=== PATIENT | male | born 1935 | race Caucasian/White ===

== ENCOUNTER 2018-08-19 19:52 | Inpatient (IN) | payer OTHER ==
[2018-08-19] MEDS ORDERED: ONDANSETRON 4 MG INJ IV (21:30)
[2018-08-19] MEDS ORDERED: ACETAMINOPHEN 325 MG TAB PO (21:30)
[2018-08-19] MEDS ORDERED: BISACODYL (EC) 5 MG TAB PO (21:30)
[2018-08-19] MEDS ORDERED: DOCUSATE SODIUM 100 MG CAP PO (21:30)
[2018-08-19] MEDS ORDERED: NACL 0.9% 3 ML SYG IV (21:30)
[2018-08-19 22:03] LABS: ADD MAN DIFF? NO
[2018-08-19 22:08] LABS: BASOPHILS % 0.5 % (0.0-2.0); EOSINOPHILS # 0.2 10^3/ul (0.0-0.5); HEMATOCRIT 33.5 % (42.0-52.0); HEMOGLOBIN 10.8 g/dl (14.0-18.0); LYMPHOCYTES # 1.1 10^3/ul (0.8-2.9); LYMPHOCYTES % 17.6 % (15.0-51.0); MEAN CORPUSCULAR HEMOGLOBIN 29.6 pg (29.0-33.0); MEAN CORPUSCULAR HGB CONC 32.2 g/dl (32.0-37.0); MEAN CORPUSCULAR VOLUME 91.8 fl (82.0-101.0); MEAN PLATELET VOLUME 9.9 fl (7.4-10.4); MONOCYTE # 0.6 10^3/ul (0.3-0.9); MONOCYTES % 10.6 % (0.0-11.0); NEUTROPHILS % 67.6 % (39.0-77.0); PLATELET COUNT 270 10^3/UL (140-415); RED BLOOD COUNT 3.65 10^6/ul (4.70-6.10); RED CELL DISTRIBUTION WIDTH 13.3 % (11.5-14.5)
[2018-08-19 22:28] LABS: INR 0.93; PROTIME 12.6 Sec (11.9-14.9)
[2018-08-19 22:29] LABS: PARTIAL THROMBOPLASTIN TIME 28.9 Sec (23.0-35.0)
[2018-08-19 22:29] LABS: LACTIC ACID 1.9 mmol/L (0.5-2.0)
[2018-08-19] MEDS: LISINOPRIL 5 MG TAB PO (22:30)
[2018-08-19] MEDS ORDERED: morphine 2 MG INJ IV (22:30)
[2018-08-19] MEDS ORDERED: HEPARIN 5,000 UNIT/0.5 ML VIAL (22:54)
[2018-08-19] MEDS: HEPARIN 5,000 UNIT/1 ML VIAL SC (23:03)
[2018-08-19] MEDS: HYDROCODONE/APAP (5/325) TAB PO (23:04)
[2018-08-19 23:12] LABS: ALANINE AMINOTRANSFERASE 8 IU/L (13-69); ALBUMIN 3.6 g/dl (3.3-4.9); ALBUMIN/GLOBULIN RATIO 1.12; ALKALINE PHOSPHATASE 58 IU/L (42-121); ANION GAP 10 (5-13); ASPARTATE AMINO TRANSFERASE 28 IU/L (15-46); BILIRUBIN,INDIRECT 0.4 mg/dl (0-1.1); BILIRUBIN,TOTAL 0.4 mg/dl (0.2-1.3); BLOOD UREA NITROGEN 25 mg/dl (7-20); CARBON DIOXIDE 25 mmol/L (21-31); CHLORIDE 98 mmol/L (97-110); GLUCOSE 94 mg/dl (70-220); MAGNESIUM 1.8 mg/dl (1.7-2.5); SODIUM 133 mmol/L (135-144); TOTAL PROTEIN 6.8 g/dl (6.1-8.1)
[2018-08-19] MEDS: MELATONIN 3 MG TABLET PO (23:30)
[2018-08-20] MEDS ORDERED: HEPARIN 5,000 UNIT/0.5 ML VIAL ×3 (05:52→20:44)
[2018-08-20] MEDS: HEPARIN 5,000 UNIT/1 ML VIAL SC ×3 (05:56→21:07)
[2018-08-20 06:08] LABS: ADD MAN DIFF? NO
[2018-08-20 06:13] LABS: BASOPHILS % 0.9 % (0.0-2.0); EOSINOPHILS # 0.3 10^3/ul (0.0-0.5); EOSINOPHILS % 5.4 % (0.0-7.0); HEMATOCRIT 30.3 % (42.0-52.0); LYMPHOCYTES % 21.8 % (15.0-51.0); MEAN CORPUSCULAR HEMOGLOBIN 29.9 pg (29.0-33.0); MEAN CORPUSCULAR VOLUME 90.7 fl (82.0-101.0); MEAN PLATELET VOLUME 9.5 fl (7.4-10.4); MONOCYTE # 0.7 10^3/ul (0.3-0.9); NEUTROPHIL # 2.7 10^3/ul (1.6-7.5); NEUTROPHILS % 57.5 % (39.0-77.0); PLATELET COUNT 280 10^3/UL (140-415); RED BLOOD COUNT 3.34 10^6/ul (4.70-6.10); RED CELL DISTRIBUTION WIDTH 13.2 % (11.5-14.5)
[2018-08-20 06:13] LABS: WHITE BLOOD COUNT 4.6 10^3/ul (4.8-10.8)
[2018-08-20 06:36] LABS: HEMOGLOBIN A1C 5.5 % (0-5.9)
[2018-08-20] MEDS ORDERED: VANCOMYCIN IV PER PHARMACY XX (07:00)
[2018-08-20 07:01] LABS: ADD UMIC NO; UR ASCORBIC ACID NEGATIVE (NEGATIVE); UR BILIRUBIN (Dip) NEGATIVE (NEGATIVE); UR BLOOD (Dip) NEGATIVE (NEGATIVE); UR CLARITY CLEAR (CLEAR); UR COLOR STRAW (YELLOW); UR GLUCOSE (Dip) NEGATIVE (NEGATIVE); UR KETONES (Dip) NEGATIVE (NEGATIVE); UR LEUKOCYTE ESTERASE (Dip) NEGATIVE Leu/ul (NEGATIVE); UR NITRITE (Dip) NEGATIVE (NEGATIVE); UR SPECIFIC GRAVITY (Dip) 1.008 (1.003-1.030); UR TOTAL PROTEIN (Dip) NEGATIVE (NEGATIVE); UR UROBILINOGEN (Dip) NEGATIVE (NEGATIVE)
[2018-08-20 07:07] LABS: ALANINE AMINOTRANSFERASE 9 IU/L (13-69); ALBUMIN 3.4 g/dl (3.3-4.9); ALBUMIN/GLOBULIN RATIO 1.03; ALKALINE PHOSPHATASE 68 IU/L (42-121); ANION GAP 9 (5-13); ASPARTATE AMINO TRANSFERASE 22 IU/L (15-46); BILIRUBIN,INDIRECT 0.4 mg/dl (0-1.1); BILIRUBIN,TOTAL 0.4 mg/dl (0.2-1.3); BLOOD UREA NITROGEN 20 mg/dl (7-20); CALCIUM 8.8 mg/dl (8.4-10.2); CARBON DIOXIDE 25 mmol/L (21-31); CHLORIDE 102 mmol/L (97-110); CHOL/HDL RATIO 2.9 RATIO; CHOLESTEROL 151 mg/dl (100-200); CREATININE 0.73 mg/dl (0.61-1.24); GLUCOSE 93 mg/dl (70-220); HDL CHOLESTEROL 52 mg/dl (31-75); LDL CHOLESTEROL,CALCULATED 86 mg/dl; MAGNESIUM 1.8 mg/dl (1.7-2.5); POTASSIUM 4.3 mmol/L (3.5-5.1); SODIUM 136 mmol/L (135-144); TOTAL PROTEIN 6.7 g/dl (6.1-8.1); TRIGLYCERIDES 63 mg/dl (0-149)
[2018-08-20] MEDS: LISINOPRIL 5 MG TAB PO (08:39)
[2018-08-20 09:53] LABS: LACTIC ACID 1.6 mmol/L (0.5-2.0)
[2018-08-20] MEDS: VANCOMYCIN 1 GM 250 ML IVPB (11:07)
[2018-08-20] MEDS: DOXYCYCLINE 100 MG TAB PO ×2 (13:19→21:07)
[2018-08-20] MEDS: HYDROCODONE/APAP (5/325) TAB PO (14:27)
[2018-08-21 07:12] LABS: ADD MAN DIFF? NO
[2018-08-21 07:17] LABS: BASOPHILS % 0.6 % (0.0-2.0); EOSINOPHILS # 0.2 10^3/ul (0.0-0.5); EOSINOPHILS % 3.6 % (0.0-7.0); HEMATOCRIT 31.6 % (42.0-52.0); HEMOGLOBIN 10.4 g/dl (14.0-18.0); LYMPHOCYTES # 1.1 10^3/ul (0.8-2.9); LYMPHOCYTES % 21.8 % (15.0-51.0); MEAN CORPUSCULAR HEMOGLOBIN 30.3 pg (29.0-33.0); MEAN CORPUSCULAR HGB CONC 32.9 g/dl (32.0-37.0); MEAN CORPUSCULAR VOLUME 92.1 fl (82.0-101.0); MEAN PLATELET VOLUME 9.6 fl (7.4-10.4); MONOCYTE # 0.6 10^3/ul (0.3-0.9); MONOCYTES % 11.6 % (0.0-11.0); NEUTROPHIL # 3.1 10^3/ul (1.6-7.5); NEUTROPHILS % 61.8 % (39.0-77.0); PLATELET COUNT 287 10^3/UL (140-415); RED BLOOD COUNT 3.43 10^6/ul (4.70-6.10); RED CELL DISTRIBUTION WIDTH 13.4 % (11.5-14.5)
[2018-08-21 07:49] LABS: ANION GAP 9 (5-13); BLOOD UREA NITROGEN 20 mg/dl (7-20); CALCIUM 8.7 mg/dl (8.4-10.2); CARBON DIOXIDE 26 mmol/L (21-31); CHLORIDE 100 mmol/L (97-110); CREATININE 0.86 mg/dl (0.61-1.24); GLUCOSE 122 mg/dl (70-220); POTASSIUM 4.5 mmol/L (3.5-5.1); SODIUM 135 mmol/L (135-144)
[2018-08-21 07:54] LABS: PHOSPHORUS 3.5 mg/dl (2.5-4.9)
[2018-08-21 07:54] LABS: MAGNESIUM 1.9 mg/dl (1.7-2.5)
[2018-08-21] MEDS: VANCOMYCIN 500MG/NS (PMX) 100 ML IVPB (08:00)
[2018-08-21] MEDS: LISINOPRIL 5 MG TAB PO (08:57)
[2018-08-21] MEDS: DOXYCYCLINE 100 MG TAB PO ×2 (08:57→20:03)
[2018-08-21] MEDS: HYDROCODONE/APAP (5/325) TAB PO ×2 (08:57→19:12)
[2018-08-21] MEDS: HEPARIN 5,000 UNIT/1 ML VIAL SC ×2 (08:58→20:06)
[2018-08-21] MEDS ORDERED: HEPARIN 5,000 UNIT/0.5 ML VIAL (20:01)
[2018-08-21] MEDS: MELATONIN 3 MG TABLET PO (20:03)
[2018-08-22] MEDS ORDERED: HEPARIN 5,000 UNIT/0.5 ML VIAL ×2 (08:35→20:20)
[2018-08-22] MEDS: DOXYCYCLINE 100 MG TAB PO ×2 (09:05→20:45)
[2018-08-22] MEDS: LISINOPRIL 5 MG TAB PO (09:06)
[2018-08-22] MEDS: HEPARIN 5,000 UNIT/1 ML VIAL SC ×2 (09:10→20:46)
[2018-08-22] MEDS: HYDROCODONE/APAP (5/325) TAB PO (09:18)
[2018-08-23] MEDS ORDERED: HEPARIN 5,000 UNIT/0.5 ML VIAL ×2 (09:08→20:02)
[2018-08-23] MEDS: DOXYCYCLINE 100 MG TAB PO ×2 (09:14→20:05)
[2018-08-23] MEDS: LISINOPRIL 5 MG TAB PO (09:15)
[2018-08-23] MEDS: HEPARIN 5,000 UNIT/1 ML VIAL SC ×2 (09:17→20:07)
[2018-08-23] MEDS: HYDROCODONE/APAP (5/325) TAB PO ×2 (09:34→20:05)
[2018-08-24] MEDS: HYDROCODONE/APAP (5/325) TAB PO ×2 (02:08→09:06)
[2018-08-24] MEDS ORDERED: HEPARIN 5,000 UNIT/0.5 ML VIAL (08:46)
[2018-08-24] MEDS: DOXYCYCLINE 100 MG TAB PO (08:54)
[2018-08-24] MEDS: LISINOPRIL 5 MG TAB PO (08:55)
[2018-08-24] MEDS: HEPARIN 5,000 UNIT/1 ML VIAL SC (08:58)
[2018-08-24] MEDS ORDERED: morphine LIQ (10 MG/5 ML) CUP PO (16:00)
== END 2018-08-24 17:30 | DRG 603 ==
LOC: 5EC 19:52
DX: L03.115 Cellulitis of right lower limb (principal); F03.91 Unspecified dementia, unspecified severity, with behavioral disturbance; L03.116 Cellulitis of left lower limb; I10 Essential (primary) hypertension; I87.8 Other specified disorders of veins
CPT/HCPCS: 70450; 71045; 80048; 80053; 80061; 81003; 83036; 83605; 83735; 84100; 84443; 85025; 85610; 85730; 87040; 87081; 87086; 93922; 93970; 97116; 97161; 97166; 97530; 97535